=== PATIENT | male | born 1995 | race Asian ===

== ENCOUNTER 2020-03-01 18:17 | Emergency (ER) | payer OTHER ==
[~2020-03-01] VITALS: Ht 175.3 cm; Wt 65.8 kg
== END 2020-03-01 20:21 | disposition home or self-care (01) ==
LOC: ER 18:17
DX: G43.109 Migraine with aura, not intractable, without status migrainosus (principal); Z03.818 Encounter for observation for suspected exposure to other biological agents ruled out; R11.2 Nausea with vomiting, unspecified; R51 Headache